=== PATIENT | female | born 1940 | race Caucasian/White ===

== ENCOUNTER → 2016-07-19 | Outpatient (CLI) | payer OTHER, BC | LOC: CAT 03:27 | DX: I51.7 Cardiomegaly (principal); I73.9 Peripheral vascular disease, unspecified; I77.811 Abdominal aortic ectasia; R10.9 Unspecified abdominal pain; K57.30 Diverticulosis of large intestine without perforation or abscess without bleeding; R07.9 Chest pain, unspecified; R10.2 Pelvic and perineal pain ==

== ENCOUNTER → 2017-07-15 | Outpatient (CLI) | payer OTHER, BC | LOC: RAD 14:45 | DX: Z12.31 Encounter for screening mammogram for malignant neoplasm of breast (principal) ==

== ENCOUNTER → 2018-12-31 | Outpatient (CLI) | payer OTHER, BC ==
[~2018-12-31] MED LIST: DEMADEX20 MG PO; ELIQUIS5 MG PO; FLUOXETINE HCL40 MG PO; HYDROCORTISONE3011 TOP; LIPITOR 40 MG T40 M1 PO; MAG6464 MG PO; NEURONTIN 300300 M1 PO; NORVASC5 MG PO; TOPROL XL25 MG PO
== END ==
LOC: RAD 13:15
DX: Z12.31 Encounter for screening mammogram for malignant neoplasm of breast (principal)

== ENCOUNTER → 2019-01-26 | Outpatient (CLI) | payer OTHER, BC | LOC: RAD 14:53 | DX: J18.9 Pneumonia, unspecified organism (principal); Z88.8 Allergy status to other drugs, medicaments and biological substances; Z88.2 Allergy status to sulfonamides ==

== ENCOUNTER 2019-01-27 11:56 | Inpatient (IN) | payer OTHER, BC ==
[~2019-01-27] VITALS: Ht 162.6 cm; Wt 54.4 kg
[2019-01-27 14:04] LABS: ABSOLUTE NEUTROPHILS 4.7 thou/uL (1.4-8.2); BASOPHILS 0.4 % (0.0-2.0); EOSINOPHILS 0.4 % (0.0-3.0); HEMATOCRIT 39.4 % (37.0-47.0); HEMOGLOBIN 12.8 gm/dL (12.0-15.0); LYMPHOCYTES 15.6 % (24.0-44.0); MCH 29.8 pg (26.0-34.0); MCHC 32.4 g/dL (28.0-37.0); MONOCYTES 9.3 % (1.0-8.0); PLATELET COUNT 181 thou/uL (150-400); POLYS 74.3 % (36.0-66.0); RBC 4.28 mil/uL (4.20-5.00); RDW 13.7 % (10.5-14.5); WBC 6.4 thou/uL (4.0-11.0)
[2019-01-27 14:16] LABS: ANION GAP 5 mmol/L (7-16); BUN 10 mg/dL (7-18); CALCIUM 8.9 mg/dL (8.5-10.1); CHLORIDE 99 mmol/L (98-107); CO2 31 mmol/L (21-32); CREATININE 0.6 mg/dL (0.6-1.0); GLUCOSE 103 mg/dL (74-106); SODIUM 135 mmol/L (136-145)
[2019-01-27 14:18] LABS: APTT 26.9 Seconds (24.5-32.8); PROTIME 10.6 Seconds (9.3-11.4)
[2019-01-27 14:27] LABS: ALBUMIN 3.4 g/dL (3.4-5.0); MAGNESIUM 1.9 mg/dL (1.8-2.4); SGOT 80 U/L (15-37); SGPT 197 U/L (30-65); TOTAL BILIRUBIN 0.5 mg/dL (<0.1-1.0); TOTAL PROTEIN 6.9 g/dL (6.4-8.2); TROPONIN-I <0.06 ng/mL (<0.06)
--- NOTE | 2019-01-27 17:43 | EKG ---
[address] [place] [address] ELECTROCARDIOGRAM REPORT Name: YAIR CARRENO Room #: 170-6 ADM IN M.R.#: [id number] Admission: 01/27/19 Attend Phys: Mason Ewing MD Discharge: Date of : 38 Report #: [id number] THIS REPORT FOR: //name// [facility] ED Test Date: 2019-01-27 Test Time: 14:56:13 Pat Name: YAIR CARRENO Department: Room: 170 Gender: F Occupational Health Specialist: JOYCE : 1940 Requested By: Sanya Washington Order Number: [id number] MD: Ron Carrillo Measurements Intervals [place] Rate: 87 P: DC: QRS: 34 QRSD: 98 T: 31 QT: 390 QTc: 470 Interpretive Statements Atrial fibrillation Ventricular premature complex Compared to ECG 07/20/2007 12:31:10 Ventricular premature complex(es) now present Sinus bradycardia no longer present Electronically Signed On 01-27-2019 17:43:17 CDT by Ron Carrillo [email or web address] <ELECTRONICALLY SIGNED> By: Ron Carrillo MD, [facility] 01/27/19 1743 1456 1456 Ron Carrillo MD, [facility] /EPI
[2019-01-27 20:00] VITALS: BP 97/51
[2019-01-27 23:38] VITALS: BP 101/53
[2019-01-28] VITALS (7 sets, daily range): BP systolic 86–107; BP diastolic 42–59
[2019-01-28] MEDS ORDERED: TOPROL XL25 MG PO (05:16)
[2019-01-28] MEDS ORDERED: HYDROCORTISONE3011 TOP (05:18)
[2019-01-28] MEDS ORDERED: NEURONTIN 300300 M1 PO (05:19)
[2019-01-28] MEDS ORDERED: LIPITOR 40 MG T40 M1 PO (05:20)
[2019-01-28] MEDS ORDERED: NORVASC5 MG PO (05:20)
[2019-01-28] MEDS ORDERED: FLUOXETINE HCL40 MG PO (05:20)
[2019-01-28 05:27] LABS: ALBUMIN 3.1 g/dL (3.4-5.0); CALCIUM 8.8 mg/dL (8.5-10.1); CREATININE 0.6 mg/dL (0.6-1.0); POTASSIUM 4.8 mmol/L (3.5-5.1); TOTAL BILIRUBIN 0.4 mg/dL (<0.1-1.0)
--- NOTE | 2019-01-28 08:38 | NUR ---
PATIENT RESTED IN BED. ADMISSION COMPLETED. SHE IS ALERT ORIENTED X4. DOES NOT SEEM TO BE IN PAIN OR DISTRESS AT THIS TIME. WILL CONT WITH PLAN OF CARE.
--- NOTE | 2019-01-28 13:21 | NUR ---
PATIENT WILL BE DISCHARGED TO AT THIS TIME. SHE IS ALERT ORIENED X4. DOES NOT SEEM TO BE IN PAIN AT THIS TIME. RESPIRATIONS ARE EVEN NON LABORED. CONT ON OXYGEN 2L. BRADYCARDIA NOTED WHEN SHE SLEEPS. WILL CONT WITH PLAN OF CARE.
--- NOTE | 2019-01-28 14:35 | 2DMMODE ---
[facility] [employer] [place] [address] 2 D/M-MODE ECHOCARDIOGRAM Name: YAIR CARRENO Noman Room #: 216-P [facility] IN [facility]#: [id number] Admission: 01/27/19 Attend Phys: Mason Ewing MD Discharge: Date of : 38 Report #: [id number] THIS REPORT FOR: //name// APPROVED REPORT Study performed: 01/28/2019 09:33:21 EXAM: Comprehensive 2D, Doppler, and color-flow Echocardiogram Patient Location: ER Room #: 16 Status: routine BSA: 1.57 HR: 60 bpm BP: 114/62 mmHg Rhythm: Atrial Fibrillation Other Information Study Quality: Good Indications SOB, edema. CHF. Hx: AFib, mild CAD, HTN HLP. 2D Dimensions RVDd: 36.91 mm IVSd: 12.74 (7-11mm) LVOT Diam: 19.27 (18-24mm) LVDd: 48.80 mm PWd: 10.18 (7-11mm) Ascending Ao: 38.12 (22-36mm) LVDs: 29.92 (25-40mm) Aortic Root: 35.22 mm Volumes Left Atrial Volume (Systole) Single Plane 4CH: 89.44 mL Single Plane 2CH: 103.19 mL LA ESV Index: 67.00 mL/m2 Aortic Valve AoV Peak Ari.: 1.34 m/s AO Peak Gr.: 7.79 mmHg LVOT Max P.92 mmHg LVOT Max V: 0.99 m/s SHOSHANA Vmax: 2.16 cm2 Mitral Valve MV Decel. Time: 156.82 ms MV E Max Ari.: 1.97 m/s [facility] [address] [place] [address] 2 D/M-MODE ECHOCARDIOGRAM Name: YAIR CARRENO Room #: 216-P [facility] IN [facility].#: [id number] Admission: 01/27/19 Attend Phys: Msaon Ewing MD Discharge: Date of : 38 Report #: [id number] Pulmonary Valve PV Peak Ari.: 0.78 m/s PV Peak Gr.: 2.49 mmHg Tricuspid Valve TR Peak Ari.: 3.30 m/s RAP Estimate: 15.00 mmHg TR Peak Gr.: 44.00 mmHg PA Pressure: 59.00 mmHg Left Ventricle The left ventricle is normal size. There is normal LV segmental wall motion. Mild basal septal hypertrophy is present. The left ventricular systolic function is normal. LVEF is 60-65%. This study is not technically sufficient to allow evaluation of the LV diastolic function due to atrial fibrillation. Right Ventricle The right ventricle is normal size. The right ventricular systolic function is normal. Atria Left atrium is severely dilated. Right atrium is severely dilated. Aortic Valve The aortic valve is normal in structure; minimally calcified Trace aortic regurgitation. There is no aortic valvular stenosis. 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 Severe mitral regurgitation. No evidence of mitral valve stenosis. Tricuspid Valve The tricuspid valve is normal in structure. Moderate tricuspid regurgitation. Estimated PAP is 60mmHg. Pulmonic Valve Pulmonic valve is not well visualized. Trace pulmonic regurgitation. Great Vessels The aortic root is normal in size. The ascending aorta is borderline dilated. IVC is dilated and collapses <50% with inspiration. Pericardium [facility] [address] [place] [address] 2 D/M-MODE ECHOCARDIOGRAM Name: YAIR CARRENO Room #: 216-P [facility] IN M.R.#: [id number] Admission: 01/27/19 Attend Phys: Mason Ewing MD Discharge: Date of : 38 Report #: [id number] There is no pericardial effusion. Left and right pleural effusions noted <Conclusion> The left ventricular systolic function is normal. There is normal LV segmental wall motion. LVEF is 60-65%. Both atria are severely dilated. The aortic valve is normal in structure; minimally calcified. Trace aortic regurgitation, no stenosis. 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 Severe mitral regurgitation. Moderate tricuspid regurgitation. Estimated pulmonary artery pressure of 60mmHg. There is no pericardial effusion. <ELECTRONICALLY SIGNED> By: Ron Carrillo MD, [facility] 01/28/19 6341 1435 143 Ron Carrillo MD, FACC /INF
--- NOTE | 2019-01-28 18:52 | NUR ---
TO UNIT FROM Sonia, REPORT FROM CHANELL DE LA O. AAOX4. IN TOW. NO C/O. RESP EVEN AND UNLABORED. NO EDEMA NOTED. ORIENTED TO UNIT. AFIB PER TELE. WILL CONTINUE TO FOLLOW.
[2019-01-29 00:18] VITALS: BP 104/57
[2019-01-29 03:20] VITALS: BP 122/64
[2019-01-29 04:00] LABS: CALCIUM 8.7 mg/dL (8.5-10.1); CREATININE 0.8 mg/dL (0.6-1.0); POTASSIUM 5.2 mmol/L (3.5-5.1)
--- NOTE | 2019-01-29 04:39 | NUR ---
ASSESSMENT DOCUMENTED.PT BEEN RESTING IN NO ACUTE DISTRESS,A/OX4.VSS.ON MONITOR AFIB WITH SVR.LOWEST OBSERVED 35BPM.PT NOT SYMPTOMATIC.NO C/O CHEST PAIN.STANDBY ASSIST WITH BRP.VOIDING ADEQUATELY.PT DENIES ANY NEEDS AT THIS TIME.WILL CONT TO MONITOR PER POC.
[2019-01-29 07:31] VITALS: BP 120/65
--- NOTE | 2019-01-29 08:34 | EKG ---
[address] [address] ELECTROCARDIOGRAM REPORT Name: YAIR CARRENO Room #: 216-P ADM IN M.R.#: [id number] Admission: 01/27/19 Attend Phys: Mason Ewing MD Discharge: Date of : 39 Report #: [id number] THIS REPORT FOR: //name// [facility] ED Test Date: 2019-01-28 Test Time: 10:22:13 Pat Name: YAIR CARRENO Department: Room: 216 Gender: F Stereo Map Plotter Operator: Alonso LERNER : 1940 Requested By: Ron Carrillo Order Number: [id number] MD: Ron Carrillo Measurements Intervals [place] Rate: 44 P: [place]: QRS: 55 QRSD: 97 T: 12 QT: 439 QTc: 376 Interpretive Statements Atrial fibrillation Compared to ECG 01/27/2019 14:56:13 Ventricular premature complex(es) no longer present Electronically Signed On 01-29-2019 8:34:27 CDT by Ron Carrillo [email or web address] <ELECTRONICALLY SIGNED> By: Ron Carrillo MD, [facility] 01/29/19 0834 1022 102 Ron Carrillo MD, FACC /EPI
[2019-01-29 11:35] VITALS: BP 93/70
[2019-01-29 15:20] VITALS: BP 118/67
--- NOTE | 2019-01-29 17:16 | NUR ---
AD consult rec'd. Info provided to pt and spouse at bedside. Pt is a&ox4 and indicates that she is feeling better. She is normally indep with gait and adl's. Cm role introduced. No dc planning needs anticipated. Will remain available should needs arise.
--- NOTE | 2019-01-29 17:42 | NUR ---
PT CARE ASSUMED APPROX 0700. ASSESSMENT CHARTED. DENIES PAIN AND SOA. VSS. UP WITH STEADY GAIT. PT REFUSES FALL PRECAUTIONS BUT IS STEADY DESPITE FALL SCORE. EDUCATED. PT DENIES QUESTIONS OR CONCERNS REGARDING POC. TOLERATING POC. NO DISTRESS NOTED.
[2019-01-29 20:57] VITALS: BP 124/69
--- NOTE | 2019-01-30 03:28 | NUR ---
ASSUMED PT CARE AT 1900. PT A/OX4, VITAL SIGN STABLE, ASSESSMENT CHARTED. NO COMPLAINTS OF PAIN, NO COMPLAINTS OF SOB. PT RESTED WELL THROUGH THE NIGHT. PROGRESSING TOWARD PLAN OF CARE. WILL CONTINUE TO MONITOR.
[2019-01-30 04:07] VITALS: BP 121/66
[2019-01-30 04:14] LABS: ALBUMIN 2.9 g/dL (3.4-5.0); CALCIUM 8.8 mg/dL (8.5-10.1); CREATININE 0.6 mg/dL (0.6-1.0); TOTAL BILIRUBIN 0.3 mg/dL (<0.1-1.0); TOTAL PROTEIN 6.2 g/dL (6.4-8.2)
[2019-01-30 08:17] VITALS: BP 122/71
[2019-01-30 11:59] VITALS: BP 108/61
[2019-01-30 16:16] VITALS: BP 103/44
--- NOTE | 2019-01-30 16:24 | NUR ---
PT CARE ASSUMED APPROX 0700. ASSESSMENTS CHARTED. PT DENIES PAIN AND SOA. PT CONTINUES TO DESAT ON EXERTION BUT DENIES FEELING IT. MULTIPLE FAILED ATTEMPTS MADE TO WEAN PT'S 02. EVEN AT REST PT DID NOT TOLERATE WEANING FROM [address] EDWARDS AWARE. PT UP WITH STEADY GAIT. DENIES QUESTIONS OR CONCERNS REGARDING POC. NO DISTRESS NOTED.
[2019-01-30 20:10] VITALS: BP 118/75
[2019-01-31 04:55] VITALS: BP 129/76
--- NOTE | 2019-01-31 05:24 | NUR ---
ASSUMED PT CARE AT 1900. PT C/O NO PAIN. VSS. GAVE PT SLEEP AID PER REQUEST AND PT SLEPT THRU NIGHT. PT SATURATION LEVELS DECLINE WHEN NOT ON OXYGEN. PT IS SLOWLY PROGRESSING TOWARDS POC. THOROCENTESIS IS PLANNED FOR FRIDAY. WILL CONTINUE TO MONITOR.
[2019-01-31 07:29] VITALS: BP 111/62
[2019-01-31 11:33] VITALS: BP 92/59
[2019-01-31 15:16] LABS: HEMATOCRIT 40.4 % (37.0-47.0); MCH 29.8 pg (26.0-34.0); MCHC 32.3 g/dL (28.0-37.0); MCV 92.3 fL (80.0-100.0); RBC 4.38 mil/uL (4.20-5.00); WBC 5.5 thou/uL (4.0-11.0)
[2019-01-31 15:30] LABS: ANION GAP < 0 mmol/L (7-16); BUN 17 mg/dL (7-18); CALCIUM 8.8 mg/dL (8.5-10.1); CHLORIDE 93 mmol/L (98-107); CO2 35 mmol/L (21-32); CREATININE 1.1 mg/dL (0.6-1.0); GLUCOSE 107 mg/dL (74-106); POTASSIUM 3.6 mmol/L (3.5-5.1); SODIUM 123 mmol/L (136-145)
[2019-01-31 16:12] VITALS: BP 101/65
--- NOTE | 2019-01-31 17:14 | NUR ---
PT CARE ASSUMED APPROX 0700. ASSESSMENTS CHARTED. PT DENIES PAIN AND SOA. VSS. UP WTIH STEADY GAIT. PT TOLERATING O2 TITRATIONS BUT HAS NOT BEEN ABLE TO WEAN TO RA. SCHEDULED THORACENTESIS IN AM. PT DENIES QUESTIONS OR CONCERNS REGARDING PROCEDURE OR POC. NO DISTRESS NOTED.
[2019-01-31 20:15] VITALS: BP 101/58
[2019-02-01 04:45] VITALS: BP 121/60
--- NOTE | 2019-02-01 04:49 | NUR ---
ASSUMED PT CARE AT 1900. VSS PT A&0X4. PT RESTED ALL NIGHT, 02 ON 1L FOR NOC REQUESTED ALPRAZOLAM PRIOR TO SLEEP. NO COMPLAINTS OF PAIN OR DISCOMFORT, NPO SINCE MIDNIGHT, READY FOR THORACENTHESIS THIS AM.
[2019-02-01 06:21] LABS: HEMATOCRIT 39.5 % (37.0-47.0); HEMOGLOBIN 12.9 gm/dL (12.0-15.0); MCHC 32.7 g/dL (28.0-37.0); MCV 91.7 fL (80.0-100.0); RBC 4.3 mil/uL (4.20-5.00); RDW 13.9 % (10.5-14.5); WBC 5.3 thou/uL (4.0-11.0)
[2019-02-01 06:28] LABS: CALCIUM 8.6 mg/dL (8.5-10.1); CREATININE 0.6 mg/dL (0.6-1.0); MAGNESIUM 2.1 mg/dL (1.8-2.4); POTASSIUM 4.3 mmol/L (3.5-5.1)
[2019-02-01 08:42] VITALS: BP 109/67
[2019-02-01] MEDS ORDERED: MAG6464 MG PO (10:48)
[2019-02-01] MEDS ORDERED: ELIQUIS5 MG PO (10:48)
[2019-02-01] MEDS ORDERED: DEMADEX20 MG PO (10:48)
[2019-02-01 11:33] VITALS: BP 109/67
--- NOTE | 2019-02-01 12:44 | NUR ---
PT CARE ASSUMED APPROX 0700. ASSESSMENT CHARTED. PT DENIES PAIN AND SOA. VSS. WEANED TO RA THIS SHIFT. UP WITH STEADY GAIT. PT DISCHARGING AT THIS TIME. DISCHARGE INSTRUCTIONS REVIEWED WITH PT AND SPOUSE. BOTH DENY QUESTIONS AND CONCERNS REGARDING EDUCATION AND POST HOSPITAL CARE. IV OUT, TELE BOX OFF. HOSPITAL STAFF TO ESCORT PT OUT TIMELY.
--- NOTE | 2019-02-01 16:13 | NUR ---
PRIOR TO PT DISCHARGE PT REFUSED HOME HEALTH.
[2019-02-03 13:56] VITALS: BP 109/67
== END 2019-02-01 13:40 | disposition home or self-care (01) | DRG 291 ==
LOC: ER 11:56 → 2N 15:00 → EROBS 15:00 → 2N 01-28 13:35 → ENTRNSPT 02-01 13:24 → EDTRNSPTSTS 02-01 13:33 → 2N 02-01 13:40
PROVIDERS: Emergency Medicine; Internal Medicine; ADMIT Hospitalist
DX: I11.0 Hypertensive heart disease with heart failure (principal); J96.01 Acute respiratory failure with hypoxia; I75.029 Atheroembolism of unspecified lower extremity; E46 Unspecified protein-calorie malnutrition; I48.19 Other persistent atrial fibrillation; I50.33 Acute on chronic diastolic (congestive) heart failure; M79.7 Fibromyalgia; F32.9 Major depressive disorder, single episode, unspecified; D41.9 Neoplasm of uncertain behavior of unspecified urinary organ; I25.10 Atherosclerotic heart disease of native coronary artery without angina pectoris; E78.5 Hyperlipidemia, unspecified; K21.9 Gastro-esophageal reflux disease without esophagitis; G43.909 Migraine, unspecified, not intractable, without status migrainosus; I34.0 Nonrheumatic mitral (valve) insufficiency; R79.89 Other specified abnormal findings of blood chemistry; E87.5 Hyperkalemia; Z79.01 Long term (current) use of anticoagulants; Z90.49 Acquired absence of other specified parts of digestive tract; Z86.73 Personal history of transient ischemic attack (TIA), and cerebral infarction without residual deficits; Z88.6 Allergy status to analgesic agent; Z88.2 Allergy status to sulfonamides; Z98.49 Cataract extraction status, unspecified eye; Z82.49 Family history of ischemic heart disease and other diseases of the circulatory system; Z87.891 Personal history of nicotine dependence; Z68.20 Body mass index [BMI] 20.0-20.9, adult
CPT/HCPCS: 10081

== ENCOUNTER → 2019-04-16 | Outpatient (CLI) | payer OTHER, BC | LOC: SJCVC 14:41 | DX: I34.0 Nonrheumatic mitral (valve) insufficiency (principal); I11.0 Hypertensive heart disease with heart failure; I50.32 Chronic diastolic (congestive) heart failure; E78.5 Hyperlipidemia, unspecified; I73.00 Raynaud's syndrome without gangrene; I75.023 Atheroembolism of bilateral lower extremities; K21.9 Gastro-esophageal reflux disease without esophagitis; Z87.891 Personal history of nicotine dependence; Z79.899 Other long term (current) drug therapy; Z88.2 Allergy status to sulfonamides; Z88.5 Allergy status to narcotic agent; Z88.8 Allergy status to other drugs, medicaments and biological substances ==

== ENCOUNTER → 2019-04-21 | Outpatient (CLI) | payer OTHER, BC | LOC: SJCVC 11:27 | DX: I25.10 Atherosclerotic heart disease of native coronary artery without angina pectoris (principal); I48.91 Unspecified atrial fibrillation; I50.9 Heart failure, unspecified; E78.5 Hyperlipidemia, unspecified; Z79.01 Long term (current) use of anticoagulants ==

== ENCOUNTER → 2019-05-13 | Outpatient (CLI) | payer OTHER, BC | LOC: SJCVC 14:36 | DX: I48.21 Permanent atrial fibrillation (principal); I34.0 Nonrheumatic mitral (valve) insufficiency; I50.32 Chronic diastolic (congestive) heart failure; I11.0 Hypertensive heart disease with heart failure; I25.10 Atherosclerotic heart disease of native coronary artery without angina pectoris; K21.9 Gastro-esophageal reflux disease without esophagitis; M79.7 Fibromyalgia; E78.5 Hyperlipidemia, unspecified; Z79.01 Long term (current) use of anticoagulants; Z79.899 Other long term (current) drug therapy; Z82.49 Family history of ischemic heart disease and other diseases of the circulatory system; Z83.3 Family history of diabetes mellitus; Z87.891 Personal history of nicotine dependence; Z98.890 Other specified postprocedural states ==

== ENCOUNTER → 2020-01-03 | Outpatient (CLI) | payer OTHER, BC | LOC: SJCVC 16:30 | PROVIDERS: ATTEND Internal Medicine | DX: I48.91 Unspecified atrial fibrillation (principal); R94.31 Abnormal electrocardiogram [ECG] [EKG]; I11.0 Hypertensive heart disease with heart failure; I48.21 Permanent atrial fibrillation; E78.5 Hyperlipidemia, unspecified; I50.32 Chronic diastolic (congestive) heart failure; Z79.01 Long term (current) use of anticoagulants; Z79.899 Other long term (current) drug therapy ==

== ENCOUNTER → 2020-01-07 | Outpatient (CLI) | payer OTHER, BC | LOC: LAB 10:25 | PROVIDERS: ATTEND Nurse Practitioner | DX: Z20.828 Contact with and (suspected) exposure to other viral communicable diseases (principal) ==

== ENCOUNTER → 2020-01-14 | Outpatient (CLI) | payer OTHER, BC ==
[~2020-01-14] MED LIST changes: -NEURONTIN 300300 M1 PO; +NEURONTIN 300M300 M2 PO; +TORSEMIDE20 MG PO
== END ==
LOC: LAB 11:40
PROVIDERS: ATTEND Specialist
DX: Z20.828 Contact with and (suspected) exposure to other viral communicable diseases (principal)

== ENCOUNTER → 2020-01-19 | Outpatient (CLI) | payer OTHER, BC ==
[~2020-01-19] VITALS: Ht 157.5 cm; Wt 49.9 kg
--- NOTE | ~2020-01-19 | P ---
[facility] [place] [address] PROCEDURE REPORT Name: YAIR CARRENO Room #: REG [facility]#: [id number] Admission: 01/19/20 Attend Phys: Cipriano Singh Discharge: Date of : 38 Report #: [id number] THIS REPORT FOR: cc: Rosa Marlow DNP, Mary E. DNP McElhinney, Christian C. MD ~ CC: Cipriano JAIME DATE OF SERVICE: 01/19/2020 PROCEDURE PERFORMED: Colonoscopy. 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 Last colonoscopy was approximately 9 years ago. No family history of colon cancer. She does complain of abdominal distention. She was followed by my partner who is now retired. She does complain of constipation, taking a stool softener, which was helpful. She denies any blood in her stools. No nausea or vomiting. On physical examination, no evidence of obvious hernia was noted. Plan is for colonoscopy. DESCRIPTION OF PROCEDURE: The risks and benefits of the procedure were explained to the patient, those risks including but not limited to bleeding, perforation and the risk of sedation. She understood these risks and gave informed consent. Sedation was given using propofol per anesthesia. Next, a digital rectal exam was initially performed, which was normal. Next, using a standard Olympus colonoscope, the scope was placed in the patient's anus and advanced under direct vision to the right colon, at which the surgical anastomosis was noted. The anastomosis was well healed and widely patent. The terminal ileum was normal in appearance. The remaining transverse colon was normal. The descending colon was normal. Multiple diverticula were noted in the sigmoid colon. No evidence of inflammation, otherwise normal. The rectal mucosa was normal. On retroflexion, small nonbleeding internal hemorrhoids were noted. The scope was then withdrawn and the procedure terminated. The patient tolerated the procedure well. IMPRESSION: 1. Surgical changes consistent with right hemicolectomy. 2. Sigmoid diverticulosis. 3. Small internal hemorrhoids. 4. Otherwise, normal colonoscopy. RECOMMENDATIONS: 1. Continue current regimen for constipation. [address] [address] PROCEDURE REPORT Name: YAIR CARRENO Room #: REG Prabhu Caraballo#: [id number] Admission: 01/19/20 Attend Phys: Cipriano Singh Discharge: Date of : 39 Report #: [id number] 2. If concern for abdominal distention and bloating consider imaging such as ultrasound or CT scan of the abdomen and pelvis, no obvious hernia was noted on exam today. Thank you for allowing me to participate in her care. By: 1102 1529 Cipriano Chauhan MD /nt
== END | disposition home or self-care (01) ==
LOC: GI 08:53
PROVIDERS: ATTEND Specialist
DX: K59.00 Constipation, unspecified (principal); R14.0 Abdominal distension (gaseous); K57.30 Diverticulosis of large intestine without perforation or abscess without bleeding; K64.8 Other hemorrhoids; M79.7 Fibromyalgia; I50.9 Heart failure, unspecified; I48.91 Unspecified atrial fibrillation; E78.00 Pure hypercholesterolemia, unspecified; F32.9 Major depressive disorder, single episode, unspecified; F41.9 Anxiety disorder, unspecified; Z98.890 Other specified postprocedural states; Z79.899 Other long term (current) drug therapy; Z86.010 Personal history of colon polyps; Z79.01 Long term (current) use of anticoagulants; Z90.49 Acquired absence of other specified parts of digestive tract; Z86.73 Personal history of transient ischemic attack (TIA), and cerebral infarction without residual deficits; Z87.891 Personal history of nicotine dependence; Z85.828 Personal history of other malignant neoplasm of skin
CPT/HCPCS: 62110; 62900

== ENCOUNTER → 2020-02-02 | Outpatient (CLI) | payer OTHER, BC | LOC: SJCVCIMAG 08:22 | PROVIDERS: ATTEND Internal Medicine | DX: I08.8 Other rheumatic multiple valve diseases (principal); I27.20 Pulmonary hypertension, unspecified; I48.21 Permanent atrial fibrillation; I11.0 Hypertensive heart disease with heart failure; I50.32 Chronic diastolic (congestive) heart failure; Z87.891 Personal history of nicotine dependence; Z79.899 Other long term (current) drug therapy ==

== ENCOUNTER → 2020-07-03 | Outpatient (CLI) | payer OTHER, BC | LOC: SJCVC 13:15 | PROVIDERS: ATTEND Internal Medicine | DX: R94.31 Abnormal electrocardiogram [ECG] [EKG] (principal); I48.91 Unspecified atrial fibrillation; I48.21 Permanent atrial fibrillation; I34.0 Nonrheumatic mitral (valve) insufficiency; Z79.01 Long term (current) use of anticoagulants; Z79.84 Long term (current) use of oral hypoglycemic drugs; Z79.899 Other long term (current) drug therapy ==

== ENCOUNTER → 2020-12-21 | Outpatient (CLI) | payer OTHER, BC | LOC: SJCVCIMAG 10:56 | PROVIDERS: ATTEND Internal Medicine | DX: I08.8 Other rheumatic multiple valve diseases (principal); R94.31 Abnormal electrocardiogram [ECG] [EKG]; I48.91 Unspecified atrial fibrillation; I50.32 Chronic diastolic (congestive) heart failure; I48.21 Permanent atrial fibrillation; I34.0 Nonrheumatic mitral (valve) insufficiency; I11.0 Hypertensive heart disease with heart failure; E78.5 Hyperlipidemia, unspecified; Z79.01 Long term (current) use of anticoagulants; K21.9 Gastro-esophageal reflux disease without esophagitis; F32.9 Major depressive disorder, single episode, unspecified; Z88.1 Allergy status to other antibiotic agents; Z88.5 Allergy status to narcotic agent; Z88.8 Allergy status to other drugs, medicaments and biological substances; Z88.2 Allergy status to sulfonamides; Z87.891 Personal history of nicotine dependence; Z79.899 Other long term (current) drug therapy ==

== ENCOUNTER 2021-02-08 12:13 | Inpatient (IN) | payer OTHER, BC ==
[~2021-02-08] VITALS: Ht 157.5 cm; Wt 51.7 kg
[2021-02-08 12:15] VITALS: BP 127/76
[2021-02-08 12:50] LABS: ABSOLUTE NEUTROPHILS 4.3 thou/uL (1.4-8.2); BASOPHILS 0.4 % (0.0-2.0); EOSINOPHILS 0.3 % (0.0-3.0); HEMATOCRIT 43.4 % (37.0-47.0); HEMOGLOBIN 14.2 gm/dL (12.0-15.0); LYMPHOCYTES 9.3 % (24.0-44.0); MCH 31.4 pg (26.0-34.0); MCHC 32.7 g/dL (28.0-37.0); MONOCYTES 7.3 % (1.0-8.0); PLATELET COUNT 181 thou/uL (150-400); POLYS 82.7 % (36.0-66.0); RBC 4.52 mil/uL (4.20-5.00); RDW 15.1 % (10.5-14.5); WBC 5.2 thou/uL (4.0-11.0)
[2021-02-08 13:03] LABS: URINE BLOOD 2+ (Negative); URINE COLOR YELLOW; URINE GLUCOSE-RANDOM* NEGATIVE (Negative); URINE KETONES TRACE (Negative); URINE LEUKOCYTES-REFLEX NEGATIVE (Negative); URINE NITRITE-REFLEX NEGATIVE (Negative); URINE PROTEIN (DIPSTICK) 1+ (Negative); URINE SPECIFIC GRAVITY >= 1.030 (1.005-1.035); URINE UROBILINOGEN 0.2 E.U./dl (0.2-1.0)
[2021-02-08 13:07] LABS: ICTOTEST (BILI CONFIRMATORY) Negative (Negative); URINE BILIRUBIN NEGATIVE (Negative); URINE CLARITY SL HAZY
[2021-02-08 13:08] LABS: CALCIUM 9.1 mg/dL (8.5-10.1); CREATININE 0.8 mg/dL (0.6-1.0)
[2021-02-08 13:12] LABS: POTASSIUM 4.4 mmol/L (3.5-5.1)
[2021-02-08 13:15] LABS: ALBUMIN 3.6 g/dL (3.4-5.0); LIPASE 129 U/L (73-393); TOTAL BILIRUBIN 1.3 mg/dL (0.2-1.0); TOTAL PROTEIN 7.5 g/dL (6.4-8.2)
[2021-02-08 13:17] LABS: BACTERIA-REFLEX >30 Many /HPF (None Seen); SQUAMOUS 0-3 Few /LPF (0-3); URINE RBC 3-10 Few /HPF (NONE SEEN); URINE WBC-REFLEX 0-5 Rare /HPF (0-5)
[2021-02-08 13:18] LABS: AMORPHOUS URATES Many /LPF (None Seen); CASTS None Seen /LPF (None Seen)
[2021-02-08 17:36] VITALS: BP 96/55
[2021-02-08 19:27] VITALS: BP 104/69
[2021-02-08 20:08] VITALS: BP 123/67
--- NOTE | 2021-02-08 20:30 | NUR ---
Pt. arrived to the unit from the emergency room accompanied by staff. She offers no c/o pain. Admission assessment and history is completed. Up to the comode with assistance of one. Pt. is alert and oriented times 3, but is also very forgetful. Bed alarm is on.
--- NOTE | 2021-02-09 03:45 | NUR ---
Pt. woke up and was crying and she was voicing strange things that she heard people talking about her on social media. Reassured patient that she was in the hospital and that nobody was talking about her. Pt. more calm and is pleasantly confused. Bed alarm is on.
[2021-02-09 06:31] VITALS: BP 105/57
[2021-02-09 08:10] VITALS: BP 108/56
--- NOTE | 2021-02-09 10:30 | NUR ---
Nutrition: consult for wt loss. 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 Albumin WNL. Meds reviewed. Currently on clear liquids. Nsg noted pt as forgetful and pleasantly confused. Wt a year ago was 110 lb; pt reported wt this admit was 104 lb but bed wt obtained was 114 lb. Assess at low nutrition risk at this time.
[2021-02-09 12:01] VITALS: BP 100/70
--- NOTE | 2021-02-09 14:20 | NUR ---
PT ADMITTED RELATED TO DIVERTICULITIS. CM REVIEWED CHART AND SPOKE WITH CARE TEAM. CM MET WITH PT THIS AM. PT APPEARED TO BE A&O X4. CM ROLE INTRODUCED. PT INDICATED HE SHE LIVES IN A HOUSE WITH HER SPOUSE WITH 2 STEPS TO ENTER FROM FRONT AND GARAGE. PT INDICATED HAVE GRAB BARS. PT INDICATED SHE HAS FWW AND A CANE FOR HOME USE BUT HADN'T BEEN USING THEM. 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 PT STATED SHE PLANS TO RETURN HOME ONCE MEDICALLY STABLE. CARE TEAM INDICATED PT MAY BE DC READY TOMORROW. LIKELY NO NEEDS ANTICPATED UPON DC.
--- NOTE | 2021-02-09 16:39 | NUR ---
Assumed pt care at 7am.Pt in bed alert and oriented to person, place, and situation but sometimes forgetful.Assessment completed. vss.Afib per cardiac rn.Meds given with meals and well tolerated.Dr Kirkland here,order noted. Pt took shower after lunch and complete bed change done by bark peeler. Pt here,updates given.Pt up in chair resting without c/o.Fall precaution in place Will continue to monitor.
[2021-02-09 17:15] VITALS: BP 118/57
[2021-02-09 19:47] VITALS: BP 112/65
--- NOTE | 2021-02-10 03:22 | NUR ---
Pt. rested quietly during the night when checked on during frequent rounds. She offers no c/o pain and no nausea or vomiting. Up to the bathroom with standby assistance. Bed alarm is on.
[2021-02-10 04:40] VITALS: BP 99/58
[2021-02-10 07:18] VITALS: BP 113/67
--- NOTE | 2021-02-10 14:08 | NUR ---
ASSUMED PT CARE THIS AM. PT A&OX3, ABLE TO MAKE NEEDS KNOWN. PATIENT REPORTING NO PAIN, NUMBNESS, OR TINGLING. IV BECAME INFILTRATED, NEW IV STARTED TO LEFT AC, FLUIDS INFUSING. PATIENT REMAINS CONTINENT. PATIENT ON 2 LITERS OF OXYGEN VIA NC. PATIENT REMAINS ON TELE. PATIENT TAKING MEDICAITONS WITHOUT ISSUE. FALL PRECAUTIONS ARE IN PLACE, CALL LIGHT WITHIN REACH.
[2021-02-10 16:34] VITALS: BP 106/56
[2021-02-10 20:10] VITALS: BP 124/57
--- NOTE | 2021-02-11 01:02 | NUR ---
ASSUMED PT CARE AT 1900.PT WAS OBSERVED LYING DOWN ON HER BED WATCHING TV AT SHIFT CHANGE.PT DENEIED PAIN/N/V.PT HAD ONE EPISODE OF LOOSE STOOL AT SHIFT CHANGE.PT STILL ON 1L/NC.PT RESTING ON HER BED AT THIS TIME.CALL LIGHT WITHIN REACH.
[2021-02-11 01:25] VITALS: BP 138/72
[2021-02-11 05:34] VITALS: BP 140/85
[2021-02-11 07:31] VITALS: BP 135/74
[2021-02-11 11:08] VITALS: BP 151/83
[2021-02-11 12:47] LABS: HEMOGLOBIN 12.6 gm/dL (12.0-15.0); MCHC 33.1 g/dL (28.0-37.0); MCV 96.9 fL (80.0-100.0); RBC 3.92 mil/uL (4.20-5.00); WBC 5.5 thou/uL (4.0-11.0)
[2021-02-11 12:51] LABS: % SATURATION 12 % (20-39); IRON 37 ug/dL (50-170); TIBC 302 ug/dL (250-450)
[2021-02-11 15:29] VITALS: BP 119/57
[2021-02-11 19:44] VITALS: BP 141/78
[2021-02-12 00:05] VITALS: BP 115/63
--- NOTE | 2021-02-12 05:38 | NUR ---
ASSUMED CARE OF PT AT 1900. PT ASSESSED TO BE 80F PRESENTING FOR UTI AND DIVERTICULITIS. THROUGHOUT MOST OF THE NIGHT, PT RESTED QUIETLY IN ROOM WITH FEW COMPLAINTS, VSS. EARLY IN THE AFTERNOON PT FAMILY CALLED CHAVO AZUL DENISHA SAYING THAT DURING THE DAY SHE HAD BEEN LEFT TO GET UP ON HER OWN AND CLARIFY ANTIBIOTICS. CHAVO AZUL PERSONALLY TALKED THROUGH THE SITUATION WITH PT AND FAMILY IN ROOM FOR 30 MIN. PT FALL PRECAUTIONS WERE ACTIVE THROUGHOUT THE NIGHT, AMBULATING TO COMMODE SBA. PT REMAINS ON 1-2L O2 AND AFIB RC ON TELEMETRY. NO VERBALIZED PAIN, WILL CONTINUE TO MONITOR.
[2021-02-12 05:58] LABS: CALCIUM 8.2 mg/dL (8.5-10.1); CREATININE 0.7 mg/dL (0.6-1.0); POTASSIUM 3.3 mmol/L (3.5-5.1)
[2021-02-12 08:02] VITALS: BP 137/78
[2021-02-12 11:07] VITALS: BP 137/78
--- NOTE | 2021-02-12 11:46 | NUR ---
NO OT EVAL PER PATIENT REQUEST. PT FEELS SHE DOES NOT NEED.
--- NOTE | 2021-02-12 13:30 | NUR ---
PT IS TO HAVE EGD IN THE AM. CM FOLLOWING REGARDING DC PLANNING. IT IS ANTICPATED THAT PT WILL LIKELY DC HOME TO SELF CARE ONCE MEDICALLY STABLE. CM FOLLOWING REGARDING DC PLANNING.
--- NOTE | 2021-02-12 16:52 | NUR ---
PT ALERT AND ORIENTED TIMES FOUR. VSS. PT DENIES PAIN. C/O SOA ON EXCERTION. PT UP TO BSC WITH DTANDBY ASSIST. PT AT BEDSIDE THIA AFTERNOON. WILL CONTINUE TO MONITOR.
[2021-02-12 19:42] VITALS: BP 153/79
[2021-02-13 04:32] VITALS: BP 104/67
[2021-02-13 05:42] LABS: HEMATOCRIT 36.3 % (37.0-47.0); HEMOGLOBIN 11.6 gm/dL (12.0-15.0); MCH 31.2 pg (26.0-34.0); MCV 97.4 fL (80.0-100.0); RBC 3.73 mil/uL (4.20-5.00); RDW 15.1 % (10.5-14.5); WBC 4.5 thou/uL (4.0-11.0)
--- NOTE | 2021-02-13 05:42 | NUR ---
ASSUMED CARE OF PT AT 1900. PT CONTINUES TO BE AOX4 80F WITH UTI. RESTS IN ROOM THROUGHOUT THE NIGHT WITH NO COMPLAINTS, VSS. AMBULATES TO THE BEDSIDE COMMODE WITH MINIMAL ASSISTANCE. RUNS AFIB RC ON TELE. ON 2L FOR SOA. NPO SINCE MIDNIGHT FOR PROCEDURE IN AM. WILL CONT TO MONITOR.
[2021-02-13 05:49] LABS: INR 1.11
[2021-02-13 05:55] LABS: ALBUMIN 2.5 g/dL (3.4-5.0); CALCIUM 8.3 mg/dL (8.5-10.1); CREATININE 0.8 mg/dL (0.6-1.0); POTASSIUM 3.7 mmol/L (3.5-5.1); TOTAL BILIRUBIN 0.8 mg/dL (0.2-1.0); TOTAL PROTEIN 5.6 g/dL (6.4-8.2)
[2021-02-13 08:45] VITALS: BP 111/65
[2021-02-13] MEDS ORDERED: ELIQUIS2.5 MG PO (09:39)
[2021-02-13 11:00] VITALS: BP 116/67
[2021-02-13] MEDS ORDERED: CIPRO500 M1 PO (11:01)
--- NOTE | 2021-02-13 11:12 | NUR ---
Assumed pt care this am vs stable, was received NPO scheduled for an EGD. Pt refused the procedure stating she had mentioend the refusal several times to several doctors, she will do this as an out pt. MD aware, ordered a diet and will plan for dc today as per pts wish.
[2021-02-13 12:19] VITALS: BP 137/78
--- NOTE | 2021-02-13 13:20 | NUR ---
PT WAS TO HAVE EGD THIS DAY BUT PT REFUSED IT. PT IS TO HAVE OP EGD. PT'S SPOUSE INDICATED THAT HE WANTS PT TO HAVE HOME HEALTH UPON DC. SPOUSE HAD USED [facility] AND [facility]. CM FAXED REFERRAL AND ORDERS THEY CAN ACCEPT. PT IS TO DC HOME THIS DAY VIA PERSONAL VEHICLE WITH SPOUSE. NO OTHER CM INTERVENTION INDICATED. CASE CLOSED.
== END 2021-02-13 15:32 | disposition home health service (06) | DRG 377 ==
LOC: ER 12:13 → 4W 17:47 → EROBS 17:47 → 4W 17:47
PROVIDERS: Hospitalist; Internal Medicine; Nurse Practitioner; Physician Assistant; ADMIT Hospitalist; ATTEND Hospitalist
DX: K57.33 Diverticulitis of large intestine without perforation or abscess with bleeding (principal); J96.01 Acute respiratory failure with hypoxia; N39.0 Urinary tract infection, site not specified; I50.32 Chronic diastolic (congestive) heart failure; I48.21 Permanent atrial fibrillation; I34.0 Nonrheumatic mitral (valve) insufficiency; Z20.822 Contact with and (suspected) exposure to COVID-19; F32.9 Major depressive disorder, single episode, unspecified; F41.9 Anxiety disorder, unspecified; E78.00 Pure hypercholesterolemia, unspecified; I25.10 Atherosclerotic heart disease of native coronary artery without angina pectoris; E87.70 Fluid overload, unspecified; I11.0 Hypertensive heart disease with heart failure; M81.0 Age-related osteoporosis without current pathological fracture; K21.9 Gastro-esophageal reflux disease without esophagitis; Z86.73 Personal history of transient ischemic attack (TIA), and cerebral infarction without residual deficits; Z88.6 Allergy status to analgesic agent; Z87.891 Personal history of nicotine dependence; Z98.49 Cataract extraction status, unspecified eye; Z90.49 Acquired absence of other specified parts of digestive tract; Z28.21 Immunization not carried out because of patient refusal
CPT/HCPCS: 10045

== ENCOUNTER 2021-02-15 07:14 | Inpatient (IN) | payer OTHER, BC ==
[~2021-02-15] VITALS: Ht 157.5 cm; Wt 53.5 kg
[~2021-02-15 07:14] MED LIST changes: +CIPRO500 M1 PO; +ELIQUIS2.5 MG PO
[2021-02-15 07:43] VITALS: BP 118/69
[2021-02-15 07:56] LABS: ABSOLUTE NEUTROPHILS 4.9 thou/uL (1.4-8.2); BASOPHILS 0.6 % (0.0-2.0); EOSINOPHILS 0.1 % (0.0-3.0); HEMATOCRIT 41.1 % (37.0-47.0); HEMOGLOBIN 12.9 gm/dL (12.0-15.0); MCH 30.6 pg (26.0-34.0); MCHC 31.5 g/dL (28.0-37.0); MCV 97.2 fL (80.0-100.0); PLATELET COUNT 188 thou/uL (150-400); POLYS 76.3 % (36.0-66.0); RBC 4.22 mil/uL (4.20-5.00); RDW 15.2 % (10.5-14.5); WBC 6.4 thou/uL (4.0-11.0)
[2021-02-15 08:04] LABS: CALCIUM 8.8 mg/dL (8.5-10.1); CREATININE 1.3 mg/dL (0.6-1.0); POTASSIUM 4.4 mmol/L (3.5-5.1)
--- NOTE | 2021-02-15 08:28 | EKG ---
[place] [address] [facility] [place] [address] ELECTROCARDIOGRAM REPORT Name: YAIR CARRENO Room #: REG Rashmi#: [id number] Admission: 02/15/21 Attend Phys: Discharge: Date of : 38 Report #: [id number] [facility] ED Test Date: 2021-02-15 Test Time: 07:39:07 Pat Name: YAIR CARRENO Department: Room: Gender: F Superintendent Menagerie: kiki : 1940 Requested By: Rodger Cabrera Order Number: [id number] MD: Ron Carrillo Measurements Intervals [place] Rate: 109 P: [place]: QRS: 105 QRSD: 98 T: -11 QT: 387 QTc: 522 Interpretive Statements Atrial fibrillation Right axis deviation Nonspecific ST segment abnormality Prolonged QT interval Compared to ECG 01/28/2019 10:22:13 Heart rate has increased Electronically Signed On 02-15-2021 8:28:34 BROTHEL KEEPER by Ron Carrillo [email or web address] <ELECTRONICALLY SIGNED> By: Ron Carrillo MD, [facility] 02/15/21 0828 0739 0739 Ron Carrillo MD, FACC /EPI
[2021-02-15 08:46] LABS: URINE BLOOD TRACE (Negative); URINE CLARITY SL CLOUDY; URINE COLOR YELLOW; URINE GLUCOSE-RANDOM* NEGATIVE (Negative); URINE KETONES TRACE (Negative); URINE LEUKOCYTES-REFLEX TRACE (Negative); URINE NITRITE-REFLEX NEGATIVE (Negative); URINE PROTEIN (DIPSTICK) 1+ (Negative); URINE SPECIFIC GRAVITY >= 1.030 (1.005-1.035); URINE UROBILINOGEN 0.2 E.U./dl (0.2-1.0)
[2021-02-15 08:49] LABS: ICTOTEST (BILI CONFIRMATORY) Negative (Negative); URINE BILIRUBIN NEGATIVE (Negative)
[2021-02-15 09:00] LABS: HYALINE CASTS >10 Many /LPF (None Seen); SQUAMOUS >10 Many /LPF (0-3)
[2021-02-15 09:01] LABS: CRYSTALS None Seen /LPF (None Seen); URINE WBC-REFLEX 6-15 Few /HPF (0-5)
[2021-02-15 09:02] LABS: URINE RBC 1-2 Rare /HPF (NONE SEEN)
--- NOTE | 2021-02-15 11:54 | NUR ---
PT TRANSPORTED TO GI FOR PROCEDURE
--- NOTE | 2021-02-15 12:13 | NUR ---
80 year old female through the ED on 02-15-21 stating after being discharged 2-days prior she had significant abdominal pain and reported diarrhea up to 5 times daily. While in the ED the patient found to be in A-fib and also found to have an elevated BNP and CHF along with pneumonia. ID NOW in the ED is negative and noted vaccinated with Pfizer on 06-27-20 and second dose on 07-21-20. Last CM contact was on day of discharge on 02-13-21 when patient refused EGD and request home with home health via [email or web address] and patient was then discharged to spouse who took home. Patient lives at home with spouse Emile at [phone]. CM will reintroduce role of CM and monitor for MD recommendations with therapy evaluations for discharge planning.
[2021-02-15 14:38] LABS: ALBUMIN 2.8 g/dL (3.4-5.0); DIRECT BILIRUBIN 0.2 mg/dL (<0.1-0.2); TOTAL BILIRUBIN 0.5 mg/dL (0.2-1.0); TOTAL PROTEIN 5.6 g/dL (6.4-8.2)
[2021-02-15 16:46] VITALS: BP 158/81
[2021-02-15 17:40] VITALS: BP 158/81
[2021-02-16 04:00] VITALS: BP 135/67
--- NOTE | 2021-02-16 04:30 | NUR ---
PT ADMITTED FROM ER, ALERT AND ORIENTED, FORGETFUL AT TIMES, DENIES PAIN, SOB WITH EXERTIO, PT ON 3L, O2SAT AT 93%, VSS, ADMISSION ASSESSMENT HX AND EDUCATION COMPLETED, AFIB ON TELE, HR BETWEEN 90S AND LOW 100S, UP TO THE COMMODE STBY ASSIST, NO NEEDS AT THIS TIME, PT REMAINS NPO FOR EGD TODAY, AWARE OF THE PROCEDURE, WILL CONTINUE TO MONITOR
[2021-02-16 06:18] LABS: ABSOLUTE NEUTROPHILS 4.3 thou/uL (1.4-8.2); BASOPHILS 0.6 % (0.0-2.0); EOSINOPHILS 0.3 % (0.0-3.0); HEMATOCRIT 39.3 % (37.0-47.0); HEMOGLOBIN 12.7 gm/dL (12.0-15.0); LYMPHOCYTES 14.6 % (24.0-44.0); MCHC 32.3 g/dL (28.0-37.0); MCV 96.1 fL (80.0-100.0); MONOCYTES 11.4 % (1.0-8.0); PLATELET COUNT 175 thou/uL (150-400); POLYS 73.1 % (36.0-66.0); RBC 4.09 mil/uL (4.20-5.00); WBC 5.9 thou/uL (4.0-11.0)
[2021-02-16 06:28] LABS: CALCIUM 8.8 mg/dL (8.5-10.1); CREATININE 1.2 mg/dL (0.6-1.0); POTASSIUM 4.1 mmol/L (3.5-5.1)
--- NOTE | 2021-02-16 07:13 | EKG ---
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: FSCHWALBE : 1940 Requested By: Ron Carrillo Order Number: [id number] MD: Peter Ortez Measurements Intervals [place] Rate: 89 P: [place]: QRS: 104 QRSD: 96 T: -46 QT: 414 QTc: 504 Interpretive Statements Atrial fibrillation Ventricular premature complex Right axis deviation Abnormal R-wave progression, late transition Borderline T abnormalities, inferior leads Compared to ECG 02/15/2021 07:39:07 Ventricular premature complex(es) now present T-wave abnormality now present ST (T wave) deviation no longer present Electronically Signed On 02-16-2021 7:13:30 INSPECTOR PLUMBING by Peter Ortez [email or web address] <ELECTRONICALLY SIGNED> By: Peter Ortez MD, FACC 02/16/21712 3 3 Peter Ortez MD, [facility] /EPI
[2021-02-16 08:49] VITALS: BP 132/74
[2021-02-16 09:35] VITALS: BP 132/74
--- NOTE | 2021-02-16 13:02 | NUR ---
High nutrition screening risk identified. Pt was recently admitted and discharged 02/13 for acute diverticulitis. Experiencing diarrhea and abdominal pain at home, now readmitted. Plan is for EGD today and pt is npo. Wt trend from past year shows relatively stable without significant loss. During recent hospitization, pt demonstrated tolerance to diet. Low nutrition risk but avaible if intake patterns change.
[2021-02-16 13:12] VITALS: BP 113/72
--- NOTE | 2021-02-16 15:06 | NUR ---
Cm following for resumption of HH services or snf/rehab referral if needed. Pt is known to cm from recent dc on 02/13/21 with [facility] servcies. The pt has a rwalker in the home. She lives with her spouse and can stay on the main level with one step to enter the home. The pt is being treated for abd pain/afib/pneumonia with EGD this afternoon. PT/OT evals are pending. The [facility] liason indicates that they had not had a first visit with the pt and were going out yesterday when she readmitted. They have visited with the pt/spouse and can accept for services at [place]. [facility] acute rehab medicine is following along as well should the pt not be able to go directly home.
[2021-02-16 20:09] VITALS: BP 117/73
--- NOTE | 2021-02-16 23:28 | NUR ---
ASSUMED PT CARE AT 1900.PT'S SPOUSE AT HER BEDSIDE AT SHIFT CHANGE VISITING.PT ON 2L/NC.SOB WITH EXERTION NOTED WITH ACTIVITY.BRUISING TO HER BUE.UP WITH ASSIT TO THE BSC.PT ABLE TO MAKE HER NEEDS KNOWN.CALL LIGHT WITHIN REACH.
[2021-02-17 04:29] VITALS: BP 121/74
[2021-02-17 07:48] VITALS: BP 114/63
[2021-02-17 11:55] VITALS: BP 112/69
[2021-02-17 15:35] VITALS: BP 109/72
--- NOTE | 2021-02-17 18:12 | NUR ---
PATIENT ASSESMENTS CHARTED. PATIENT UP AND AROUND IN THE ROOM TODAY WALKING SOME/BATHING. VERY PLEASANT AND DESIRING TO GET BETTER. FAMILY QUESTIONS AND CONCERED ANSWERED.
[2021-02-17 19:39] VITALS: BP 124/68
[2021-02-18 04:30] VITALS: BP 109/89
--- NOTE | 2021-02-18 06:43 | NUR ---
PT IS A&OX4, PLEASANT, AND COOPERATIVE WITH STAFF. UP TO THE BSC WITH STANDBY ASSIST MULTIPLE TIMES THIS SHIFT WITH ADEQUATE URINARY OUTPUT AND SMALL BM X1. NO COMPLAINTS OF PAIN OR NAUSEA THIS SHIFT. CONTINUES TO BE AFIB PER FORESTRY AID TECHNICIAN. O2 SATS HAVE BEEN 93-94% ON 2L/NC. PT CALLS FOR ASSISTANCE APPROPRIATELY NEEDED. LABS DRAWN THIS MORNING, PROCALCITONIN NEGATIVE AND BNP IMPROVED. WILL CONTINUE TO OBSERVE FOR CHANGES
[2021-02-18 07:53] VITALS: BP 121/67
[2021-02-18 11:44] VITALS: BP 107/66
[2021-02-18 15:42] VITALS: BP 114/72
[2021-02-18 19:36] VITALS: BP 119/72
[2021-02-19 04:16] VITALS: BP 140/80
--- NOTE | 2021-02-19 04:24 | NUR ---
PT RESTING IN NO ACUTE DISTRESS.A/OX4.VSS.ASSESSMENT COMPLETED DOCUMENTED.ON O2 AT 2LITERS PNC,NO RESP DISTRESS NOTED OR REPORTED.POSSIBLE IR THORACENTESIS TODAY.
[2021-02-19 07:49] VITALS: BP 127/70
[2021-02-19 12:13] VITALS: BP 125/73
[2021-02-19 13:22] LABS: BF NUCLEATED CELLS 120 /mm3; BF RBC 373 /mm3
[2021-02-19 14:03] LABS: CLARITY CLEAR; COLOR YELLOW; TOTAL VOLUME 60 mL
[2021-02-19 14:04] LABS: SOURCE THORACENTESIS
[2021-02-19 14:27] LABS: BF NEUTROPHILS 40 %
[2021-02-19 14:28] LABS: BF MACROPHAGE 18 %
[2021-02-19 15:41] VITALS: BP 115/69
--- NOTE | 2021-02-19 18:04 | NUR ---
PATIENT COMPLETED A THORACENTESIS AND WAITING TO WALK WITH PT TO ASSES OXYGEN NEEDS. ASSESMENTS COMPLETED AND CHARTED.
[2021-02-19 19:15] VITALS: BP 105/61
[2021-02-19 20:38] VITALS: BP 124/63
[2021-02-20 04:50] VITALS: BP 123/66
--- NOTE | 2021-02-20 07:04 | NUR ---
PT A/OX4.VSS.PT BEEN RESTING IN NO ACUTE DISTRESS MOST OF THE NIGHT.PT C/O BACK PAIN LAST NOC,WHEN ASSESSED SHE ALSO VOICED SOME PAIN TO SHAKIRA CHEST.HER O2 SAT AT THE TIME WAS 90% ON RA.SHE WAS GIVEN TYLENOL AND O2 AT 2LITERS.PT REPORTED COMPLETE RELIEF FROM PAIN.THIS AM SHE WAS OFF O2 AND SHE VOICED DIFFICULTY BREATHING W/O CHEST PAINS.O2 REPLACED,VOICED MUCH RELIEF.O2 SAT 96%.NO OTHER CONCERNS VOICED.
[2021-02-20 08:00] VITALS: BP 111/59
[2021-02-20] MEDS ORDERED: PROTONIX40 M2 PO (11:41)
[2021-02-20] MEDS ORDERED: VIBRAMYCIN 100100 MG PO (11:41)
[2021-02-20] MEDS ORDERED: CEFDINIR300 MG PO (11:41)
[2021-02-20 12:00] VITALS: BP 101/58
--- NOTE | 2021-02-20 14:31 | NUR ---
Patient to dc home today with HH care. [facility] no further needs
[2021-02-20 14:55] VITALS: BP 101/58; BP 132/74
[2021-02-20 15:50] VITALS: BP 110/53
--- NOTE | 2021-02-20 16:46 | NUR ---
Patient ready for discharge. Education provided and discharge information went over with the patient and . All questions answered. Patient stable, leaving on O2. IV removed and tele D/C'd.
--- NOTE | 2021-02-20 17:08 | NUR ---
Patient needed home oxygen. 2liters at rest and 4 liters with activity. Faxed clinical information to [facility].
[2021-02-22 16:06] LABS: BODY FLUID ALBUMIN 0.7 g/dL (Not Estab.); BODY FLUID AMYLASE 27 U/L (()); BODY FLUID GLUCOSE 123 mg/dL (()); BODY FLUID LDH 54 IU/L (()); BODY FLUID PROTEIN 1.5 g/dL (())
[2021-02-26 17:06] LABS: SOURCE THORACENTESIS
== END 2021-02-20 17:21 | disposition home health service (06) | DRG 871 ==
LOC: ER 07:14 → 2N 08:42 → EROBS 08:42 → 2N 19:14
PROVIDERS: Emergency Medicine; Internal Medicine Pulmonary Disease; Nurse Practitioner; ADMIT Hospitalist; ATTEND Hospitalist
PROC: 0W9B3ZZ Drainage of Left Pleural Cavity, Percutaneous Approach (ICD-10-PCS; principal; 2021-02-19)
DX: A41.9 Sepsis, unspecified organism (principal); J69.0 Pneumonitis due to inhalation of food and vomit; J96.01 Acute respiratory failure with hypoxia; I50.33 Acute on chronic diastolic (congestive) heart failure; I13.0 Hypertensive heart and chronic kidney disease with heart failure and stage 1 through stage 4 chronic kidney disease, or unspecified chronic kidney disease; N39.0 Urinary tract infection, site not specified; N17.9 Acute kidney failure, unspecified; K92.1 Melena; J91.8 Pleural effusion in other conditions classified elsewhere; I48.21 Permanent atrial fibrillation; D68.59 Other primary thrombophilia; J98.11 Atelectasis; F32.A Depression, unspecified; F41.9 Anxiety disorder, unspecified; I34.0 Nonrheumatic mitral (valve) insufficiency; I34.1 Nonrheumatic mitral (valve) prolapse; N18.9 Chronic kidney disease, unspecified; E86.0 Dehydration; E78.5 Hyperlipidemia, unspecified; K21.9 Gastro-esophageal reflux disease without esophagitis; I25.10 Atherosclerotic heart disease of native coronary artery without angina pectoris; E78.00 Pure hypercholesterolemia, unspecified; D64.9 Anemia, unspecified; R41.3 Other amnesia; M79.7 Fibromyalgia; Z20.822 Contact with and (suspected) exposure to COVID-19; Z85.828 Personal history of other malignant neoplasm of skin; Z90.49 Acquired absence of other specified parts of digestive tract; Z86.73 Personal history of transient ischemic attack (TIA), and cerebral infarction without residual deficits; Z79.899 Other long term (current) drug therapy; Z79.01 Long term (current) use of anticoagulants; Z88.5 Allergy status to narcotic agent; Z87.891 Personal history of nicotine dependence; Z98.49 Cataract extraction status, unspecified eye
CPT/HCPCS: 10081

== ENCOUNTER 2021-03-14 07:23 | Inpatient (IN) | payer OTHER, BC ==
[~2021-03-14] VITALS: Ht 157.5 cm; Wt 49.4 kg
[2021-03-14 07:23] VITALS: BP 119/67
[~2021-03-14 07:23] MED LIST changes: +CEFDINIR300 MG PO; +PROTONIX40 M2 PO; +VIBRAMYCIN 100100 MG PO
[2021-03-14 07:42] LABS: ABSOLUTE NEUTROPHILS 5.2 thou/uL (1.4-8.2); BASOPHILS 0.3 % (0.0-2.0); EOSINOPHILS 0.1 % (0.0-3.0); HEMATOCRIT 35.8 % (37.0-47.0); HEMOGLOBIN 11.6 gm/dL (12.0-15.0); LYMPHOCYTES 5.8 % (24.0-44.0); MCH 31.3 pg (26.0-34.0); MCHC 32.6 g/dL (28.0-37.0); MONOCYTES 7.6 % (1.0-8.0); PLATELET COUNT 179 thou/uL (150-400); POLYS 86.2 % (36.0-66.0); RBC 3.73 mil/uL (4.20-5.00); RDW 15.9 % (10.5-14.5)
[2021-03-14 07:51] LABS: URINE BLOOD TRACE (Negative); URINE CLARITY CLEAR; URINE COLOR YELLOW; URINE GLUCOSE-RANDOM* NEGATIVE (Negative); URINE KETONES TRACE (Negative); URINE LEUKOCYTES-REFLEX NEGATIVE (Negative); URINE NITRITE-REFLEX NEGATIVE (Negative); URINE PROTEIN (DIPSTICK) 1+ (Negative); URINE SPECIFIC GRAVITY 1.025 (1.005-1.035); URINE UROBILINOGEN 0.2 E.U./dl (0.2-1.0)
[2021-03-14 07:54] LABS: URINE BILIRUBIN NEGATIVE (Negative)
[2021-03-14 07:55] LABS: ICTOTEST (BILI CONFIRMATORY) Negative (Negative)
[2021-03-14 08:11] LABS: ALBUMIN 1.3 g/dL (3.4-5.0); ANION GAP 11 mmol/L (7-16); BUN 8 mg/dL (7-18); CHLORIDE 120 mmol/L (98-107); CO2 18 mmol/L (21-32); CREATININE 0.3 mg/dL (0.6-1.0); DIRECT BILIRUBIN 0.2 mg/dL (<0.1-0.2); GLUCOSE 96 mg/dL (74-106); LIPASE 35 U/L (73-393); SGOT 21 U/L (15-37); SGPT 24 U/L (30-65); SODIUM 149 mmol/L (136-145); TOTAL BILIRUBIN 0.5 mg/dL (0.2-1.0); TOTAL PROTEIN 3.2 g/dL (6.4-8.2)
[2021-03-14 08:12] LABS: CASTS None Seen /LPF (None Seen); MUCUS 0-3 Light strn/LPF (None Seen); SQUAMOUS 0-3 Few /LPF (0-3)
[2021-03-14 08:13] LABS: BACTERIA-REFLEX 1-9 Few /HPF (None Seen); CRYSTALS None Seen /LPF (None Seen); URINE RBC None Seen /HPF (NONE SEEN); URINE WBC-REFLEX None Seen /HPF (0-5)
[2021-03-14 08:20] LABS: CALCIUM < 5.0 mg/dL (8.5-10.1); POTASSIUM 1.9 mmol/L (3.5-5.1)
[2021-03-14 15:20] VITALS: BP 126/64
[2021-03-14 16:01] VITALS: BP 139/54
--- NOTE | 2021-03-14 17:20 | NUR ---
PT ORIENTED TO ROOM AND UNITM BED LOW AND LOCKED, SIDE RAILS UPX3, CALL LIGHT IN REACH, TELE APPLIED. WILL CONTINUE TO ASSESS.
[2021-03-14 18:17] VITALS: BP 117/68
[2021-03-14 18:54] LABS: BUN 13 mg/dL (7-18); CHLORIDE 99 mmol/L (98-107); CO2 30 mmol/L (21-32); CREATININE 0.9 mg/dL (0.6-1.0); GLUCOSE 177 mg/dL (74-106)
[2021-03-14 18:58] LABS: ANION GAP < 0 mmol/L (7-16); CALCIUM 8.4 mg/dL (8.5-10.1); POTASSIUM 4.3 mmol/L (3.5-5.1); SODIUM 127 mmol/L (136-145)
[2021-03-14 21:03] VITALS: BP 150/85
[2021-03-14 23:13] LABS: ANION GAP < 0 mmol/L (7-16); BUN 12 mg/dL (7-18); CALCIUM 8.2 mg/dL (8.5-10.1); CHLORIDE 98 mmol/L (98-107); CO2 32 mmol/L (21-32); CREATININE 0.8 mg/dL (0.6-1.0); GLUCOSE 136 mg/dL (74-106); POTASSIUM 3.9 mmol/L (3.5-5.1); SODIUM 126 mmol/L (136-145)
[2021-03-14 23:53] VITALS: BP 131/70
[2021-03-15 00:53] LABS: MCH 31.2 pg (26.0-34.0); MCHC 32.2 g/dL (28.0-37.0); MCV 96.6 fL (80.0-100.0); RBC 3.52 mil/uL (4.20-5.00); RDW 16.3 % (10.5-14.5); WBC 8.4 thou/uL (4.0-11.0)
[2021-03-15 01:02] LABS: CALCIUM 8.3 mg/dL (8.5-10.1); CREATININE 0.7 mg/dL (0.6-1.0); POTASSIUM 4.4 mmol/L (3.5-5.1)
[2021-03-15 01:12] LABS: ALBUMIN 2.8 g/dL (3.4-5.0); MAGNESIUM 1.9 mg/dL (1.8-2.4); PHOSPHORUS 2.5 mg/dL (2.5-4.9)
[2021-03-15 04:11] LABS: CALCIUM 8.2 mg/dL (8.5-10.1); CREATININE 0.7 mg/dL (0.6-1.0); POTASSIUM 4.2 mmol/L (3.5-5.1)
[2021-03-15 05:11] VITALS: BP 139/78
--- NOTE | 2021-03-15 06:40 | NUR ---
PT RESTING IN NO ACUTE DISTRESS.A/OX4.VSS.ON O2 AT 4LITERS PNC,NO RESP DISTRESS.LACTIC ACID TRENDING DOWN.PT SODIUM HAD DROPPED FROM 140S TO 120S,METHODS SPECIALIST WAS NOTIFIED,REPEAT BMP WAS COMPLETED REVEALING LOW SODIUM OF 127.D5NS WAS DISCONTINUED AND NS AT 75ML/HR WAS STARTED.REPEAT BMP THIS AM WITH NA OF 147.METHODS SPECIALIST NOTIFIED,ORDERED TO D/C NS.POC IS TO CONT W/ABT THERAPY.NO CONCERNED VOICED BY THE PT.
[2021-03-15 07:15] VITALS: BP 120/71
--- NOTE | 2021-03-15 08:32 | EKG ---
[place] [address] [address] [facility] [place] [address] ELECTROCARDIOGRAM REPORT Name: YAIR CARRENO Room #: 457-P ADM IN M.R.#: [id number] Admission: 03/14/21 Attend Phys: Diana Kirkland Discharge: Date of : 38 Report #: [id number] [facility] ED Test Date: 2021-03-14 Test Time: 07:31:11 Pat Name: YAIR CARRENO Department: Room: [facility] Gender: F Management Professional: TYLER : 1940 Requested By: Sarthak Membreno Order Number: [id number] MD: Ron Carrillo Measurements Intervals [place] Rate: 98 P: CT: QRS: 97 QRSD: 100 T: -46 QT: 406 QTc: 519 Interpretive Statements Atrial fibrillation Right axis deviation Nonspecific ST and T wave abnormality Compared to ECG 02/16/2021 07:04:15 Ventricular premature complex(es) no longer present Electronically Signed On 03-15-2021 8:31:54 PRODUCT MARKETING PROGRAMS MANAGER by Ron Carrillo [email or web address] <ELECTRONICALLY SIGNED> By: Ron Carrillo MD, [facility] 03/15/21830 0 0 Ron Carrillo MD, FACC /EPI
[2021-03-15 11:09] VITALS: BP 129/68
[2021-03-15 15:04] VITALS: BP 127/65
--- NOTE | 2021-03-15 18:37 | NUR ---
Patient care resummed; patient in bed resting confortably. A&O*4, stand by assist with ambulation, Ji in place, IV antibiotics on board, ACHS; VSS-cardiac rhythm shows afib throughout the day. Patient on a clear liquid diet, and advancing as tolerated. Patient has been sleeping most of the day, and has voiced an increase in sadness. Patient labs reviewed; ECHO was cancelled per physicans orders. Patient current CHF;mitral valve reguritation; SOB noted during ambulation. IV L FA;S.L. and another IV in the R FA S.L.
[2021-03-15 19:37] VITALS: BP 123/76
--- NOTE | 2021-03-15 23:21 | NUR ---
PT ALERT AND ORIENTED X 4, CONFUSED AT TIMES. UP TO BSC WITH ASSIST X 1. EARL PATENT DRAINING CLEAR YELLOW URINE. SALINE LOCKS IN RIGHT AND LEFT FOREARMS INTACT AND PATENT. HR IRREGULAR. TELEMETRY WITH A-FIB. PT SOB WITH EXERTION. PT DENIES PAIN OR DISCOMFORT. BED ALARM ON FOR SAFETY. PT APPEARS TO BE SLEEPING ON HOURLY ROUNDS.
[2021-03-16 00:43] VITALS: BP 137/44
[2021-03-16 05:00] VITALS: BP 116/66
[2021-03-16 06:13] LABS: HEMOGLOBIN 10.9 gm/dL (12.0-15.0); MCH 31.3 pg (26.0-34.0); MCHC 32.2 g/dL (28.0-37.0); RBC 3.5 mil/uL (4.20-5.00); RDW 16.1 % (10.5-14.5); WBC 5.5 thou/uL (4.0-11.0)
[2021-03-16 07:21] LABS: ALBUMIN 2.8 g/dL (3.4-5.0); CREATININE 0.6 mg/dL (0.6-1.0); POTASSIUM 4.1 mmol/L (3.5-5.1)
[2021-03-16 07:26] LABS: CALCIUM 8.6 mg/dL (8.5-10.1); MAGNESIUM 1.9 mg/dL (1.8-2.4); TOTAL BILIRUBIN 0.7 mg/dL (0.2-1.0); TOTAL PROTEIN 5.9 g/dL (6.4-8.2)
[2021-03-16 07:30] VITALS: BP 96/61
--- NOTE | 2021-03-16 15:23 | NUR ---
PT ADMITTED RELATED TO SEPSIS. CM REVIEWED CHART AND SPOKE WITH CARE TEAM. CM MET WITH PT AT BEDSIDE THIS DAY. PT APPEARED TO BE A&O X4. CM ROLE INTORDUCED. PT INDICATED SHE LIVES IN A HOUSE WITH HER SPOUSE WITH 2 STEPS WITH GB TO ENTER AND NO STEPS SHE USES INSIDE. PT INDICATED SHE HAS A FWW AND CANE FOR USE HAD HOME BUT HADN'T BEEN USING THEM. 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 PT INDICATED SHE HAD BEEN ON SERVICE WITH [facility] REGIONAL DIRECTOR OF FINANCE. PT INDICATED SHE PLANS TO RETURN HOME WITH RESUMPTION OF [facility] ONCE MEDICALLY STABLE. CARE TEM INDICATED PT MAY BE DC READY TOMORROW. SHOULD PT BE DC READY OVER WEEKEND FAX ORDERS TO [facility] AT .
--- NOTE | 2021-03-16 17:01 | NUR ---
Pt is A & O x4. Pt VS stable. Pt has varma in place. Pt received medications as ordered. Pt is SBA with cares and ADLs. Pt is on 4 L of 02 per nasal cannula. pt is a-fib on the tele with PVCs noted. Pt is able to make needs known
[2021-03-16 20:38] VITALS: BP 121/62
--- NOTE | 2021-03-17 02:18 | NUR ---
assumed care approx 1900 evening 03/16. pt alert and oriented x4, pleasant and cooperative. varma to dd with yellow urine in bag. pt denies pain. pt took hs meds with water tolerating well. pt appears to be sleeping soundly. bed alarm on and call light in reach. will continue to monitor.
[2021-03-17 06:08] LABS: HEMATOCRIT 34.5 % (37.0-47.0); HEMOGLOBIN 11.3 gm/dL (12.0-15.0); MCH 31.3 pg (26.0-34.0); MCHC 32.6 g/dL (28.0-37.0); RBC 3.6 mil/uL (4.20-5.00); RDW 15.7 % (10.5-14.5); WBC 5.4 thou/uL (4.0-11.0)
[2021-03-17 06:40] LABS: ALBUMIN 2.7 g/dL (3.4-5.0); CALCIUM 8.7 mg/dL (8.5-10.1); CREATININE 0.7 mg/dL (0.6-1.0); PHOSPHORUS 2.8 mg/dL (2.6-4.7); POTASSIUM 4.4 mmol/L (3.5-5.1)
[2021-03-17 07:00] VITALS: BP 124/71
[2021-03-17 12:00] VITALS: BP 114/58
--- NOTE | 2021-03-17 12:16 | NUR ---
ASSUMED PT CARE THIS AM. PT A&OX4, ABLE TO MAKE NEEDS KNOWN. PATIENT REPORTING NO PAIN. FOLET CATHETER IN PLACE DRAINING YELLOW URINE. PATIENT IV WAS INFILTRATED TO RIGHT FOREARM, NEW IV STARTED TO LEFT FOREARM. PATIENT IS ON 2 LITERS OF OXYGEN VIA NC. MEDICATIONS TAKEN WITHOUT ISSUE. PATIENT REMAINS ON TELEMETRY. FALL PRECAUTIONS ARE IN PLACE, CALL LIGHT WITHIN REACH.
[2021-03-17 16:00] VITALS: BP 104/54
[2021-03-17 19:34] VITALS: BP 103/46
--- NOTE | 2021-03-18 05:05 | NUR ---
ASSUMED CARE OF PT AT 1900. PT ASSESSED TO BE AOX4 80F PRESENTING WITH SEPSIS. THROUGHOUT THE NIGHT PT WAS ABLE TO REST QUIETLY IN ROOM WITH NO COMPLAINTS, VSS. EARLY IN THE EVENING HELPED PT COMPLETE A CHECKLIST TO HELP HER REST COMFORTABLY INCLUDING CLEANING HER UP AND CHANGING LINENS. PT RUNS AFIB RATE CONTROLLED, SOMETIMES BRADYCARDIC ON THE MONITOR. AMBULATES WITH WALKER SBA, STABLE ON 2L O2 - HER BASELINE- AND EARL PATENT. PT EXPRESSES THAT SHE WOULD LIKE TO WORK TOWARDS DISCHARGE IN THE AM. NO FURTHER COMPLAINTS, WILL CONT TO MONITOR.
[2021-03-18 07:00] VITALS: BP 112/53
[2021-03-18] MEDS ORDERED: CEFDINIR300 MG PO (09:01)
--- NOTE | 2021-03-18 11:25 | NUR ---
ASSUMED PT CARE THIS AM. PT A&OX4, ABLE TO MAKE NEEDS KNOWN. PATIENT REPORTS NO PAIN, NUMBNESS, OR TINGLING. IV REMAINS PATENT. PATIENT TOOK ALL MORNING MEDICATION WITHOUT ISSUE. PATIENT EARL DRAINING YELLOW URINE. FALL PRECAUTIONS ARE IN PLACE, CALL LIGHT WITHIN REACH. PATIENT ON 2 LITERS OF OXYGEN VIA NC.
[2021-03-18 13:49] VITALS: BP 112/53
== END 2021-03-18 15:02 | disposition home health service (06) | DRG 871 ==
LOC: ER 07:23 → 4W 12:13 → EROBS 12:13 → 4W 16:59
PROVIDERS: Nurse Practitioner Family; Student in an Organized Health Care Education/Training Program; ADMIT Hospitalist; ATTEND Hospitalist
DX: A41.9 Sepsis, unspecified organism (principal); J18.9 Pneumonia, unspecified organism; I50.33 Acute on chronic diastolic (congestive) heart failure; J91.8 Pleural effusion in other conditions classified elsewhere; R18.8 Other ascites; E87.0 Hyperosmolality and hypernatremia; D68.59 Other primary thrombophilia; I48.21 Permanent atrial fibrillation; E87.6 Hypokalemia; E78.00 Pure hypercholesterolemia, unspecified; F32.9 Major depressive disorder, single episode, unspecified; Z20.822 Contact with and (suspected) exposure to COVID-19; F41.9 Anxiety disorder, unspecified; E83.51 Hypocalcemia; I08.9 Rheumatic multiple valve disease, unspecified; I25.10 Atherosclerotic heart disease of native coronary artery without angina pectoris; I11.0 Hypertensive heart disease with heart failure; K81.1 Chronic cholecystitis; Z86.73 Personal history of transient ischemic attack (TIA), and cerebral infarction without residual deficits; Z88.6 Allergy status to analgesic agent; Z87.891 Personal history of nicotine dependence; Z79.899 Other long term (current) drug therapy
CPT/HCPCS: 10045

== ENCOUNTER 2021-04-19 06:15 | Inpatient (IN) | payer OTHER, BC ==
[~2021-04-19] VITALS: Ht 157.5 cm; Wt 47.4 kg
[2021-04-19 06:44] VITALS: BP 105/59
[2021-04-19 06:57] LABS: BASOPHILS 0.5 % (0.0-2.0); HEMATOCRIT 36.7 % (37.0-47.0); HEMOGLOBIN 11.7 gm/dL (12.0-15.0); LYMPHOCYTES 6.6 % (24.0-44.0); MCH 31.5 pg (26.0-34.0); MCHC 31.9 g/dL (28.0-37.0); MCV 98.6 fL (80.0-100.0); MONOCYTES 6.1 % (1.0-8.0); PLATELET COUNT 157 thou/uL (150-400); POLYS 86.8 % (36.0-66.0); RBC 3.73 mil/uL (4.20-5.00); RDW 17.5 % (10.5-14.5); WBC 5.8 thou/uL (4.0-11.0)
[2021-04-19 07:04] LABS: CALCIUM 9.1 mg/dL (8.5-10.1); CREATININE 0.8 mg/dL (0.6-1.0); POTASSIUM 3.7 mmol/L (3.5-5.1)
[2021-04-19 07:15] LABS: ALBUMIN 3.5 g/dL (3.4-5.0); DIRECT BILIRUBIN 0.4 mg/dL (<0.1-0.2); TOTAL BILIRUBIN 2.3 mg/dL (0.2-1.0); TOTAL PROTEIN 6.9 g/dL (6.4-8.2)
[2021-04-19 07:38] LABS: INR 1.27; PROTIME 13.7 Seconds (10.5-12.1)
[2021-04-19 08:24] LABS: URINE BLOOD 1+ (Negative); URINE CLARITY CLEAR; URINE COLOR YELLOW; URINE GLUCOSE-RANDOM* NEGATIVE (Negative); URINE KETONES NEGATIVE (Negative); URINE LEUKOCYTES-REFLEX NEGATIVE (Negative); URINE NITRITE-REFLEX NEGATIVE (Negative); URINE PROTEIN (DIPSTICK) 1+ (Negative); URINE SPECIFIC GRAVITY >= 1.030 (1.005-1.035); URINE UROBILINOGEN 0.2 E.U./dl (0.2-1.0)
[2021-04-19 08:28] LABS: URINE BILIRUBIN NEGATIVE (Negative)
[2021-04-19 08:29] LABS: ICTOTEST (BILI CONFIRMATORY) Negative (Negative)
[2021-04-19 08:45] LABS: BACTERIA-REFLEX 1-9 Few /HPF (None Seen); CRYSTALS None Seen /LPF (None Seen); HYALINE CASTS 0-3 Few /LPF (None Seen); SQUAMOUS 0-3 Few /LPF (0-3); URINE RBC 1-2 Rare /HPF (NONE SEEN); URINE WBC-REFLEX 0-5 Rare /HPF (0-5)
--- NOTE | 2021-04-19 08:47 | EKG ---
[place] [address] [employer] [place] [address] ELECTROCARDIOGRAM REPORT Name: YAIR CARRENO Room #: [facility]#: [id number] Admission: 04/19/21 Attend Phys: Discharge: Date of : 38 Report #: [id number] [facility] ED Test Date: 2021-04-19 Test Time: 07:24:15 Pat Name: YAIR CARRENO Department: Room: Gender: F Nursing Assoc: : 1940 Requested By: Rogelio Velásquez Order Number: [id number] MD: Peter Ortez Measurements Intervals [place] Rate: 88 P: ND: QRS: 106 QRSD: 95 T: -21 QT: 427 QTc: 517 Interpretive Statements Atrial fibrillation Ventricular premature complex Right axis deviation Nonspecific repol abnormality, diffuse leads Compared to ECG 03/14/2021 07:31:11 Ventricular premature complex(es) now present Electronically Signed On 04-19-2021 8:46:52 SEMICONDUCTOR WAFERS MARKER by Peter Ortez [email or web address] <ELECTRONICALLY SIGNED> By: Peter Ortez MD, [facility] 04/19/21 0846 0724 07 Peter Ortez MD, FACC /EPI
[2021-04-19 09:00] VITALS: BP 97/63
[2021-04-19 09:18] VITALS: BP 113/78
[2021-04-19 13:00] VITALS: BP 103/64
--- NOTE | 2021-04-19 16:34 | NUR ---
PT ADMITTED RELATED TO PNEUMONIA. CM REVIEWED CHART AND SPOKE WITH CARE TEAM. CM ATTEMPTED PC TO PT WITH NO ANSWER. CM CALLED PT'S SPOUSE [facility] . HE INDICATED THAT THEY RESIDE IN A RANCH STYLE HOUSE WITHS2 STEP TO ENTER WITH BL HR. HE INICATED THAT THEY HAVE GRAB BARS IN BATHROOM. PT HAS A FWW, CANE, 02 THROUGH [facility] 2L AT REST AND 3 WIHT ACTIVITY, AND A WC FOR HOME USE. 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 HE INDICATED PLAN WOULD BE FOR PT TO RETURN HOME WITH RESUMPTION OF [facility] ONCE MEDICALLY STABLE. PT IS TO GO TO 4S RM 440. CM FOLLOWING REGARDING DC PLANNING.
[2021-04-19 17:00] VITALS: BP 120/58
[2021-04-19 20:16] VITALS: BP 133/79
[2021-04-20 03:52] LABS: ALBUMIN 2.9 g/dL (3.4-5.0); CALCIUM 8.4 mg/dL (8.5-10.1); CREATININE 0.8 mg/dL (0.6-1.0); POTASSIUM 3.4 mmol/L (3.5-5.1); TOTAL BILIRUBIN 0.9 mg/dL (0.2-1.0); TOTAL PROTEIN 6.3 g/dL (6.4-8.2)
[2021-04-20 04:11] LABS: HEMOGLOBIN 10.1 gm/dL (12.0-15.0); MCHC 32.6 g/dL (28.0-37.0); MCV 98.1 fL (80.0-100.0); RBC 3.16 mil/uL (4.20-5.00); RDW 17.6 % (10.5-14.5); WBC 6.7 thou/uL (4.0-11.0)
--- NOTE | 2021-04-20 07:40 | NUR ---
PT DENIED PAIN THIS SHIFT.PT ALERT AND ORIENTED WITH FORGETFULNESS.PER REPORT,PT WILL HAVE A LAP ANDREA TODAY.PT NPO SINCE [place],PT NOT HAPPY ABOUT IT.PT STARTED HAVING NAUSEA THIS AM,MANGED WITH IV MED.PT CONT ON IV ABX ORDERED.REPORT TO AM NURSE.
[2021-04-20 08:13] VITALS: BP 132/93
--- NOTE | 2021-04-20 12:54 | NUR ---
ASSUMED CARE OF PT AT 0700. PT HAD FEW EPISODES OF EMESIS AND ABDOMINAL PAIN. DR NORWOOD NOTIFIED ABOUT PERSISTENT NAUSEA/VOMITING AFTER ZOFRAN ADMINISTRATION. NEW ORDERS FOR MORPHINE AND COMPAZINE PUT IN. PT WAS NOT ABLE TO TAKE PO MEDS DUE TO NAUSEA. COMMUNICATED THIS WITH PACU NURSE AND DR. VÁSQUEZ TAKEN TO SURGERY SHORTLY AFTER. ALL VITAL SIGNS WNL. DORIE LUA TOOK OVER PATIENTS CARE AT 1200.
--- NOTE | 2021-04-20 13:05 | NUR ---
A/O X 4. 2 L O2 VIA NASAL CANNULA POST OP O2. ONE ASSIST WITH TRANSFERS. VERY SLEEPY. LEFT FOREARM IV D5 1/2 NS @ 80 MLS/HR. SCDS AND TEDS ON. 2 ABD LAP SITES
[2021-04-20 16:39] VITALS: BP 132/93
[2021-04-20 19:34] VITALS: BP 113/79
[2021-04-21 06:32] LABS: CALCIUM 8.6 mg/dL (8.5-10.1); CREATININE 0.9 mg/dL (0.6-1.0); POTASSIUM 4.3 mmol/L (3.5-5.1)
[2021-04-21 07:30] VITALS: BP 121/72
[2021-04-21 12:41] VITALS: BP 113/65
--- NOTE | 2021-04-21 13:27 | NUR ---
NO COMPALINTS OF PAIN FROM PATIENT. PATIENT DID STATE THAT SHE WAS HEARING A LOUD MALE VOICE TALK OUTSIDE OF HER ROOM. AFTER VERFIYING THAT NO MALE WAS OUTSIDE HER ROOM I SPOKE WITH PATIENT ABOUT IT. PT IS A&OX4. SPOKE WITH DR. GUADALUPE AND HER RECCOMENEDATION WAS TO CONTINUE TO MONITOR AND DISCONTINUE MORPHINE ORDER. STATES MADY DAVIS IS OKAY TO REMAIN IN PLACE TODAY AND WILL D/C TOMORROW BEFORE PT GOES HOME.
[2021-04-21 16:34] VITALS: BP 115/63
[2021-04-21 19:30] VITALS: BP 117/62
--- NOTE | 2021-04-22 05:02 | NUR ---
Pt. rested quietly during the night when checked on during frequent rounds. She offers no c/o pain or discomfort. Bed alarm is on.
[2021-04-22 07:36] VITALS: BP 119/70
--- NOTE | 2021-04-22 12:26 | NUR ---
ASSUMED PT CARE THIS AM. PT IS ALERT & ORIENTED X4. PT HAS IV SITE ON LFA SALINE LOCKED. DISCONTINUED EARL CATH THIS AM. PT IS NOW ON 2L NC O2. CALLED DR CROW REGARDING MEDICATIONS PER HOSPITALIST THIS AM. NO C/O OF PAIN, NAUSEA AND VOMITING. WILL CONTINUE TO MONITOR PT. FOLLOW POC.
[2021-04-22 17:25] VITALS: BP 119/76
[2021-04-22 19:34] VITALS: BP 108/58
--- NOTE | 2021-04-23 03:35 | NUR ---
PT RESTING IN NO ACUTE DISTRESS.A/OX4.VSS.O2 AT 2L/NC.DENIES PAIN.POSSIBLE DISCHARGE TO HOME W/HH TODAY.ASSESSMENT COMPLETED DOCUMENTED.
[2021-04-23 04:18] VITALS: BP 112/50
[2021-04-23 08:24] VITALS: BP 117/67
[2021-04-23] MEDS ORDERED: KEFLEX250 MG/5 M PO (08:54)
[2021-04-23] MEDS ORDERED: TORSEMIDE20 MG PO (08:55)
[2021-04-23] MEDS ORDERED: KLOR-CON M2020 MEQ PO (09:01)
[2021-04-23 09:14] VITALS: BP 132/93
[2021-04-23 09:19] VITALS: BP 132/93
--- NOTE | 2021-04-23 10:52 | NUR ---
ASSUMED CARE OF PT AT 0700. PT WAS RESTING UPON START OF SHIFT. HELPED AMBULATE TO BED SIDE COMMODE. PT IS SET TO DISCHARGE HOME TODAY WITH HOME HEALT. ALL VITAL SIGNS WNL. WILL CONTINUE TO MONITOR.
--- NOTE | 2021-04-23 14:34 | NUR ---
Patient to dc home she had home health care in past with [facility]. [facility] rec orders.
--- NOTE | 2021-04-23 18:06 | PATH ---
[facility] [place] [address] PATHOLOGY RPT PROCEDURE Name: YAIR CARRENO Noman Room #: 440-P [facility] IN M.R.#: [id number] Admission: 04/19/21 Date of : 38 Discharge: 04/23/21 Report #: [id number] Path Case #: [id number] [facility] Accession Number: [id number] . 01 Material submitted: . gallbladder - GALLBLADDER . 01 Clinical history: . LAPAROSCOPIC CHOLECYSTECTOMY CHOLECYSTITIS . 02 Diagnosis: Gallbladder (cholecystectomy): - Mild chronic cholecystitis (MAYDA:david; 04/23/2021) [facility] 04/23/2021 1728 Local . 02 Comment: We find no evidence of malignancy in any of the tissue examined. (MAYDA:david; 04/23/2021) . 02 Electronically signed: . Mati Hastings MD, Pathologist NPI- [id number] . 01 Gross description: . Fixative: Formalin Labeled: Gallbladder Specimen received: Intact cholecystectomy Dimensions: 8.3 x 4.1 x 3.2 cm Serosa: Noble-green and smooth Lymph node: Not present Mucosa: Green and velvety Average wall thickness: 0.1 cm Calculi: None identified Abnormalities: None identified A1- Electric Sign Assembler body, fundus, and the cystic duct margin. ([facility]; 04/22/2021) [facility] 04/22/2021 [facility] Local . 02 Pathologist provided ICD-10: K80.10 . 02 CPT . 417018 Specimen Comment: A courtesy copy of this report has been sent to [phone] [phone] PATHOLOGY RPT PROCEDURE Name: YAIR CARRENO Room #: 440-P [facility] IN [facility]#: [id number] Admission: 04/19/21 Date of : 38 Discharge: 04/23/21 Report #: [id number] Path Case #: [id number] Specimen Comment: [id number] Specimen Comment: Report sent to / DR NORWOOD Performed at: 01 [facility] [address] [id number] MD Daniel Navarro MD Phone: [phone] Performed at: 02 [facility] [address] [id number] MD Mati Hastings MD Phone: [phone]
== END 2021-04-23 15:07 | disposition home health service (06) | DRG 853 ==
LOC: ER 06:15 → 4S 09:10 → EROBS 09:10 → 4S 15:54
PROVIDERS: Emergency Medicine; Internal Medicine; ADMIT Internal Medicine; ATTEND Internal Medicine
PROC: 0FT44ZZ Resection of Gallbladder, Percutaneous Endoscopic Approach (ICD-10-PCS; principal; 2021-04-20)
DX: A41.9 Sepsis, unspecified organism (principal); J18.9 Pneumonia, unspecified organism; J96.01 Acute respiratory failure with hypoxia; I50.33 Acute on chronic diastolic (congestive) heart failure; K81.0 Acute cholecystitis; I48.21 Permanent atrial fibrillation; D68.59 Other primary thrombophilia; R44.3 Hallucinations, unspecified; N17.9 Acute kidney failure, unspecified; J98.11 Atelectasis; Z68.1 Body mass index [BMI] 19.9 or less, adult; Z20.822 Contact with and (suspected) exposure to COVID-19; F41.9 Anxiety disorder, unspecified; F32.9 Major depressive disorder, single episode, unspecified; E78.00 Pure hypercholesterolemia, unspecified; I11.0 Hypertensive heart disease with heart failure; R53.81 Other malaise; M81.0 Age-related osteoporosis without current pathological fracture; R63.4 Abnormal weight loss; I05.9 Rheumatic mitral valve disease, unspecified; T40.2X5A Adverse effect of other opioids, initial encounter; Z90.49 Acquired absence of other specified parts of digestive tract; Z86.73 Personal history of transient ischemic attack (TIA), and cerebral infarction without residual deficits; Z88.6 Allergy status to analgesic agent; Z87.891 Personal history of nicotine dependence; Z79.899 Other long term (current) drug therapy; Z82.49 Family history of ischemic heart disease and other diseases of the circulatory system; Z98.49 Cataract extraction status, unspecified eye; Y92.89 Other specified places as the place of occurrence of the external cause
CPT/HCPCS: 10100; 10102; 50010; 50101; 50411; 50555; 51489; 52265; 52266; 53307; 53310; 53312; 54022; 54118; 55245; 56462; 56525; 56526; 58574; 58910; 62110; 62900; 70005

== ENCOUNTER → 2021-05-07 | Outpatient (CLI) | payer OTHER, BC ==
[~2021-05-07] MED LIST changes: +KEFLEX250 MG/5 M PO; +KLOR-CON M2020 MEQ PO
== END ==
LOC: RAD 13:58
PROVIDERS: ATTEND Nurse Practitioner
DX: J90 Pleural effusion, not elsewhere classified (principal); I51.7 Cardiomegaly; I70.0 Atherosclerosis of aorta

== ENCOUNTER → 2021-05-14 | Outpatient (CLI) | payer OTHER, BC | LOC: RAD 12:23 | PROVIDERS: ATTEND Pediatrics | DX: I51.7 Cardiomegaly (principal) ==